=== PATIENT | female | born 1960 | race Caucasian/White ===

== ENCOUNTER 2016-11-03 06:18 | Day surgery (SDC) | payer OTHER ==
[~2016-11-03] VITALS: Ht 154.9 cm; Wt 59.4 kg
[2016-11-03 06:30] VITALS: BP 109/57
[2016-11-03 10:14] VITALS: BP 108/65
== END 2016-11-03 10:30 | disposition home or self-care (01) ==
LOC: GI 06:18 → OR 08:00 → GI 10:30
PROVIDERS: Internal Medicine Gastroenterology
PROC: 0DBG8ZZ Excision of Left Large Intestine, Via Natural or Artificial Opening Endoscopic (ICD-10-PCS; principal; 2016-11-03 07:30)
DX: Z12.11 Encounter for screening for malignant neoplasm of colon (principal); K57.90 Diverticulosis of intestine, part unspecified, without perforation or abscess without bleeding; D12.4 Benign neoplasm of descending colon; K64.8 Other hemorrhoids; F17.200 Nicotine dependence, unspecified, uncomplicated; Z68.25 Body mass index [BMI] 25.0-25.9, adult; Z80.8 Family history of malignant neoplasm of other organs or systems; Z80.1 Family history of malignant neoplasm of trachea, bronchus and lung; Z80.0 Family history of malignant neoplasm of digestive organs
CPT/HCPCS: 45378; J1200; J1610; J2250; J2310; J3010; J3490

== ENCOUNTER 2016-11-16 04:49 | Inpatient (IN) | payer OTHER ==
[~2016-11-16] VITALS: Ht 152.4 cm; Wt 63.0 kg
[2016-11-16] MEDS ORDERED: EXCEDRIN EXTRA1 EACH PO (05:56)
[2016-11-16] MEDS ORDERED: ZESTRIL20 MG (05:56)
[2016-11-16 05:57] LABS: BASOPHIL % 1.2 % (0-2); PLATELET COUNT 334 x10^3mcL (130-400); RED CELL DISTRIBUTION WIDTH 12.2 % (11.5-14.5)
[2016-11-16] MEDS ORDERED: [UNRECOGNIZED DRUG - OTHER] INH (05:57)
[2016-11-16] MEDS ORDERED: QVAR0.08 MG/Ac IH (05:57)
[2016-11-16 06:04] LABS: CARBON DIOXIDE 26.3 mmol/L (21-32); CHLORIDE SERUM 100 mmol/L (98-107); CREATININE SERUM 0.8 mg/dL (0.6-1.0); GFR1 > 60 mL/min; GLUCOSE SERUM 102 mg/dL (74-106); POTASSIUM SERUM 3.7 mmol/L (3.5-5.1); SODIUM SERUM 139 mmol/L (136-145)
[2016-11-16 06:10] LABS: ALBUMIN 3.8 g/dL (3.4-5.0); ALKALINE PHOSPHATASE 89 U/L (46-116); ALT/SGPT 58 U/L (14-59); AST/SGOT 41 U/L (15-37); BILIRUBIN TOTAL 0.4 mg/dL (0.20-1.00); TOTAL PROTEIN, SERUM 7.5 g/dL (6.4-8.2)
[2016-11-16 08:08] VITALS: BP 114/63
[2016-11-16 13:45] VITALS: BP 109/69
[2016-11-16 17:42] VITALS: BP 98/61
[2016-11-16 21:41] VITALS: BP 100/63
[2016-11-17 04:43] VITALS: BP 95/65
[2016-11-17 06:09] LABS: BASOPHIL % 0.7 % (0-2); PLATELET COUNT 276 x10^3mcL (130-400)
[2016-11-17 06:32] LABS: CALCIUM 7.8 mg/dL (8.5-10.1); CARBON DIOXIDE 26.3 mmol/L (21-32); CHLORIDE SERUM 106 mmol/L (98-107); CREATININE SERUM 0.6 mg/dL (0.6-1.0); GFR1 > 60 mL/min; GLUCOSE SERUM 107 mg/dL (74-106); POTASSIUM SERUM 3.6 mmol/L (3.5-5.1); SODIUM SERUM 140 mmol/L (136-145)
[2016-11-17 07:53] VITALS: BP 106/65
[2016-11-17] MEDS ORDERED: CLEOCIN HCL300 MG PO (15:50)
[2016-11-17] MEDS ORDERED: NORCO1 TA2 PO (15:51)
[2016-11-17 16:45] VITALS: BP 117/80
[2016-11-17 21:42] VITALS: BP 107/63
[2016-11-18 04:39] VITALS: BP 110/64
[2016-11-18 06:33] LABS: BASOPHIL % 0.8 % (0-2); PLATELET COUNT 324 x10^3mcL (130-400); RED CELL DISTRIBUTION WIDTH 13.3 % (11.5-14.5)
[2016-11-18 06:53] LABS: CALCIUM 8.1 mg/dL (8.5-10.1); CARBON DIOXIDE 28.2 mmol/L (21-32); CHLORIDE SERUM 103 mmol/L (98-107); CREATININE SERUM 0.5 mg/dL (0.6-1.0); GFR1 > 60 mL/min; GLUCOSE SERUM 95 mg/dL (74-106); MAGNESIUM 2.3 mg/dL (1.8-2.4); POTASSIUM SERUM 3.5 mmol/L (3.5-5.1); SODIUM SERUM 139 mmol/L (136-145)
[2016-11-18 08:00] VITALS: BP 126/74
[2016-11-18 13:24] VITALS: BP 126/74
== END 2016-11-18 13:55 | disposition home or self-care (01) | DRG 383 ==
LOC: ED 04:49 → MU 05:50 → DU 05:50 → MU 08:00
PROVIDERS: Emergency Medicine; Internal Medicine Pulmonary Disease; ADMIT Internal Medicine Pulmonary Disease
DX: L03.116 Cellulitis of left lower limb (principal); M10.9 Gout, unspecified; F17.210 Nicotine dependence, cigarettes, uncomplicated; Z88.0 Allergy status to penicillin; Z88.6 Allergy status to analgesic agent; Z90.49 Acquired absence of other specified parts of digestive tract; Z90.710 Acquired absence of both cervix and uterus
CPT/HCPCS: 83880; J1650; J1885; J2060; J2270; J3490; J7030; J7040; Q0092

== ENCOUNTER 2017-10-12 21:20 | Inpatient (IN) | payer OTHER ==
[~2017-10-12] VITALS: Ht 154.9 cm; Wt 57.2 kg
[~2017-10-12 21:20] MED LIST: CLEOCIN HCL300 MG PO; EXCEDRIN EXTRA1 EACH PO; NORCO1 TA2 PO; QVAR0.08 MG/Ac IH; ZESTRIL20 MG; [UNRECOGNIZED DRUG - OTHER] INH
[2017-10-12 21:26] VITALS: Ht 154.9 cm; Wt 57.2 kg
[2017-10-12 22:04] LABS: UA SPECIFIC GRAVITY 1.015 (1.005-1.035); microscopic required? YES; urine erythrocyte 3+ (NEGATIVE)
[2017-10-12 22:13] LABS: BASOPHIL % 0 % (0-2); PLATELET COUNT 293 x10^3mcL (130-400); RED CELL DISTRIBUTION WIDTH 12.9 % (11.5-14.5)
[2017-10-12 22:15] LABS: ALKALINE PHOSPHATASE 84 U/L (46-116); ALT/SGPT 45 U/L (14-59); AMYLASE 28 U/L (25-115); AST/SGOT 37 U/L (15-37); BILIRUBIN TOTAL 0.47 mg/dL (0.20-1.00); CALCIUM 8.2 mg/dL (8.5-10.1); CARBON DIOXIDE 26.5 mmol/L (21-32); CHLORIDE SERUM 93 mmol/L (98-107); GFR1 > 60 mL/min; GLUCOSE SERUM 204 mg/dL (74-106); LIPASE 116 IU/L (73-393); SODIUM SERUM 128 mmol/L (136-145); TOTAL PROTEIN, SERUM 6.8 g/dL (6.4-8.2)
[2017-10-12 22:22] LABS: ALBUMIN 2.9 g/dL (3.4-5.0)
[2017-10-12 22:25] LABS: POTASSIUM SERUM 2.6 mmol/L (3.5-5.1)
[2017-10-13] VITALS (9 sets, daily range): BP systolic 80–108; BP diastolic 43–68
[2017-10-13 06:18] LABS: CALCIUM 8.1 mg/dL (8.5-10.1); CARBON DIOXIDE 25.9 mmol/L (21-32); CHLORIDE SERUM 102 mmol/L (98-107); CREATININE SERUM 0.9 mg/dL (0.6-1.0); GFR1 > 60 mL/min; GLUCOSE SERUM 115 mg/dL (74-106); POTASSIUM SERUM 3.5 mmol/L (3.5-5.1); SODIUM SERUM 137 mmol/L (136-145)
[2017-10-13 06:26] LABS: BASOPHIL % 0.3 % (0-2); PLATELET COUNT 290 x10^3mcL (130-400); RED CELL DISTRIBUTION WIDTH 12.9 % (11.5-14.5)
[2017-10-14 05:32] VITALS: BP 97/59
[2017-10-14 07:36] LABS: ALKALINE PHOSPHATASE 78 U/L (46-116); ALT/SGPT 50 U/L (14-59); AST/SGOT 31 U/L (15-37); BILIRUBIN TOTAL 0.17 mg/dL (0.20-1.00); CALCIUM 8.3 mg/dL (8.5-10.1); CARBON DIOXIDE 24.9 mmol/L (21-32); CHLORIDE SERUM 108 mmol/L (98-107); CREATININE SERUM 0.7 mg/dL (0.6-1.0); GFR1 > 60 mL/min; GLUCOSE SERUM 115 mg/dL (74-106); MAGNESIUM 2.2 mg/dL (1.8-2.4); PHOSPHOROUS 3.9 mg/dL (2.5-4.9); POTASSIUM SERUM 3.7 mmol/L (3.5-5.1); SODIUM SERUM 142 mmol/L (136-145)
[2017-10-14 07:37] LABS: ALBUMIN 2.7 g/dL (3.4-5.0)
[2017-10-14 08:17] LABS: BASOPHIL % 0.4 % (0-2); PLATELET COUNT 301 x10^3mcL (130-400); RED CELL DISTRIBUTION WIDTH 13.2 % (11.5-14.5)
[2017-10-14 09:15] VITALS: BP 104/63
[2017-10-14 10:54] VITALS: BP 104/63
== END 2017-10-14 11:36 | disposition home or self-care (01) | DRG 463 ==
LOC: ED 21:20 → MU 23:04 → DU 10-13 04:46
PROVIDERS: Emergency Medicine; Internal Medicine; Internal Medicine Pulmonary Disease
DX: N12 Tubulo-interstitial nephritis, not specified as acute or chronic (principal); E87.1 Hypo-osmolality and hyponatremia; J45.901 Unspecified asthma with (acute) exacerbation; K59.00 Constipation, unspecified; I10 Essential (primary) hypertension; R73.9 Hyperglycemia, unspecified; E86.0 Dehydration; E87.6 Hypokalemia; M10.9 Gout, unspecified; Z88.0 Allergy status to penicillin; Z87.442 Personal history of urinary calculi; Z88.5 Allergy status to narcotic agent
CPT/HCPCS: J0696; J1885; J2405; J2765; J3480; J7030; J7512; J7613; J7626; J7644; P9047